=== PATIENT | female | born 1985 | race Two or more races ===

== ENCOUNTER 2022-01-15 20:08 | Emergency (ER) | payer SELFPAY ==
[~2022-01-15] VITALS: Ht 175.3 cm; Wt 45.2 kg
[2022-01-15 20:12] VITALS: BP 134/71
== END 2022-01-15 21:38 | disposition left against medical advice (07) ==
LOC: ER 20:09
DX: M79.10 Myalgia, unspecified site (principal); Z53.21 Procedure and treatment not carried out due to patient leaving prior to being seen by health care provider; Z04.9 Encounter for examination and observation for unspecified reason